=== PATIENT | female | born 1955 | race Caucasian/White ===

== ENCOUNTER 2022-03-04 09:15 | Inpatient (IN) | payer MEDICAID ==
[~2022-03-04] VITALS: Ht 162.6 cm; Wt 101.6 kg
[2022-03-04] VITALS (50 sets, daily range): BP systolic 77–137; BP diastolic 56–94
[2022-03-04] MEDS ORDERED: NOREPINEPHRINE 8MG/250ML PMX 250 ML IV ONE (09:18)
[2022-03-04 09:48] LABS: BG BASE EXCESS 4.6 mmol/L (-2.0-2.0); BG CARBOXYHEMOGLOBIN 0.1 % (0.5-1.5); BG DEOXYHEMOGLOBIN 0.5 % (0.0-5.0); BG FRACTION INSPIRED OXYGEN 100; BG HCO3 ACT 29.1 mmol/L (22.0-26.0); BG METHEMOGLOBIN 0.2 % (0.0-1.5); BG OXYGEN SATURATION 99.5 % (92.0-98.5); BG OXYHEMOGLOBIN 99.2 % (94.0-97.0); BG PCO2 42.9 mmHg (35.0-45.0); BG PO2 427.8 mmHg (75.0-100.0); BG SAMPLE SITE ALINE; BG TOTAL HEMOGLOBIN 13.8 g/dL (12.0-18.0); BG VENT MODE VENT - AC
[2022-03-04 09:58] LABS: BASOPHILS % 0.1 % (0.0-2.0); HEMATOCRIT. 36.1 % (36.0-48.0); HEMOGLOBIN. 12.6 g/dL (12.0-16.0); LYMPHOCYTES % 14.5 % (20.0-50.0); MEAN CORPUSCULAR HEMOGLOBIN 33.7 pg (28.0-32.0); MEAN CORPUSCULAR VOLUME 96.7 fL (81.0-99.0); MONOCYTES % 6.5 % (2.0-8.0); NEUTROPHILS % 78.9 % (40.0-76.0); PLATELET 198 x1000/uL (130-400); RED BLOOD CELL COUNT 3.73 mill/uL (4.2-5.4); RED CELL DISTRIBUTION WIDTH 13.8 % (11.6-14.6)
[2022-03-04] MEDS ORDERED: ETOMIDATE 2MG/ML 10ML VIAL IV ONE (10:00)
[2022-03-04] MEDS ORDERED: VECURONIUM BROMIDE 10 MG/VIAL IV ONE (10:00)
[2022-03-04] MEDS ORDERED: MIDAZOLAM HCL 50 MG in DEXTROSE 5% WATER 40 ML IV ONE (10:00)
[2022-03-04 10:05] LABS: CHLORIDE 96 mEq/L (98-107)
[2022-03-04] MEDS ORDERED: LEVOFLOXACIN 500MG PREMIX 100 ML IV ONE (10:15)
[2022-03-04 10:21] LABS: CREATINE KINASE 58 IU/L (26-192); T4 FREE 1.45 ng/dL (0.76-1.46)
[2022-03-04 10:28] LABS: INR 1.1; PROTHROMBIN TIME 11.5 sec (9.6-11.0)
[2022-03-04] MEDS: MIDAZOLAM HCL 100 MG in SODIUM CHLORIDE 0.9% 80 ML IV PRN ×4 (10:31→19:44)
[2022-03-04] MEDS ORDERED: MAGNESIUM 2 G PREMIX 50 ML IV ONE ×2 (11:15)
[2022-03-04] MEDS ORDERED: FENTANYL 2500MCG/250ML PMX 250 ML IV ONE (11:45)
[2022-03-04] MEDS ORDERED: FENTANYL CITRATE/PF 50MCG/ML 2ML VIAL IV ONE (11:45)
[2022-03-04 11:52] LABS: CLARITY URINE CLOUDY (CLEAR); COLOR URINE DARK YELLOW (YELLOW); KETONES URINE 2+ (NEGATIVE); LEUKOCYTE ESTERASE URINE NEGATIVE (NEGATIVE); NITRITE URINE NEGATIVE (NEGATIVE); OCCULT BLOOD URINE NEGATIVE (NEGATIVE); PH URINE 7.5 (4.5-8.0); PROTEIN URINE 2+ (NEGATIVE); SPECIFIC GRAVITY URINE 1.024 (1.005-1.030)
[2022-03-04] MEDS ORDERED: MIDAZOLAM HCL 100 MG in SODIUM CHLORIDE 0.9% 80 ML IV PRN (13:38)
[2022-03-04] MEDS: PHENYLEPHRINE 100 MG in DEXT 5% WATER 240 ML IV PRN ×3 (14:36→21:27)
[2022-03-04] MEDS: FENTANYL 2500MCG/250ML PMX 250 ML IV PRN ×2 (14:40→15:12)
[2022-03-04] MEDS ORDERED: IOHEXOL-350 100 ML BOTTLE ONE (14:48)
[2022-03-04] MEDS ORDERED: ENOXAPARIN 40MG/0.4ML SYR SUBCUT SCH (16:00)
[2022-03-04] MEDS: IPRATROPIUM/ALBUTEROL 0.5-3(2.5)MG/3ML NEB HHN SCH ×2 (16:43→20:16)
[2022-03-04] MEDS: AZITHROMYCIN 500 MG in DEXT 5% WATER 250 ML IV SCH (16:53)
[2022-03-04] MEDS ORDERED: VANCOMYCIN 1.25GM PMX (XELLIA) 250 ML IV SCH (17:00)
[2022-03-04] MEDS: BLOOD SUGAR DIAGNOSTIC STRIP TEST SCH ×2 (17:19→21:10)
[2022-03-04] MEDS: INSULIN LISPRO 100 UNITS/ML SUBCUT SCH ×2 (17:43→21:52)
[2022-03-04] MEDS: LEVETIRACETAM 500MG PREMIX 100 ML IV SCH (18:31)
[2022-03-04] MEDS: CEFEPIME 2,000 MG in DEXT 5% WATER 100 ML IV SCH (18:31)
[2022-03-04] MEDS ORDERED: NOREPINEPHRINE 8 MG in DEXTROSE 5% WATER 250 ML IV PRN (20:45)
[2022-03-04] MEDS ORDERED: NOREPINEPHRINE 8MG/250ML PMX 250 ML IV PRN (20:45)
[2022-03-04] MEDS: DEXAMETHASONE 10 MG/ML VIAL IV SCH (21:11)
[2022-03-04] MEDS: INSULIN GLARGINE 100 UNITS/ML SUBCUT SCH (21:52)
[2022-03-04] MEDS ORDERED: VASOPRESSIN 20 UNIT in SODIUM CHLORIDE 0.9% 99 ML IV PRN (22:15)
[2022-03-05] VITALS (96 sets, daily range): BP systolic 66–145; BP diastolic 48–98
[2022-03-05] MEDS: IPRATROPIUM/ALBUTEROL 0.5-3(2.5)MG/3ML NEB HHN SCH ×7 (00:38→23:32)
[2022-03-05] MEDS: DEXAMETHASONE 10 MG/ML VIAL IV SCH ×4 (02:08→18:03)
[2022-03-05] MEDS: CEFEPIME 2,000 MG in DEXT 5% WATER 100 ML IV SCH ×3 (02:08→18:04)
[2022-03-05 05:38] LABS: CHLORIDE 99 mEq/L (98-107)
[2022-03-05] MEDS: VANCOMYCIN 500MG PREMIX 100 ML IV SCH ×2 (06:54→18:04)
[2022-03-05] MEDS: BLOOD SUGAR DIAGNOSTIC STRIP TEST SCH ×3 (08:04→18:14)
[2022-03-05] MEDS: INSULIN LISPRO 100 UNITS/ML SUBCUT SCH ×3 (08:11→18:07)
[2022-03-05] MEDS: FAMOTIDINE 20MG/2ML VIAL IV SCH (09:22)
[2022-03-05 09:41] LABS: BG BASE EXCESS 4.4 mmol/L (-2.0-2.0); BG CARBOXYHEMOGLOBIN 0.4 % (0.5-1.5); BG DEOXYHEMOGLOBIN 2.3 % (0.0-5.0); BG FRACTION INSPIRED OXYGEN 40; BG HCO3 ACT 27.4 mmol/L (22.0-26.0); BG METHEMOGLOBIN 0.3 % (0.0-1.5); BG OXYGEN SATURATION 97.7 % (92.0-98.5); BG PCO2 35.9 mmHg (35.0-45.0); BG PH 7.501 (7.350-7.450); BG PO2 94.5 mmHg (75.0-100.0); BG SAMPLE SITE RIGHT RADIAL; BG TOTAL HEMOGLOBIN 14.3 g/dL (12.0-18.0); BG VENT MODE VENT - AC
[2022-03-05] MEDS: LEVETIRACETAM 500MG PREMIX 100 ML IV SCH ×2 (10:02→21:28)
[2022-03-05 11:55] LABS: HEMOGLOBIN. 13.7 g/dL (12.0-16.0); MEAN CORPUSCULAR HEMOGLOBIN 33.4 pg (28.0-32.0); MEAN CORPUSCULAR VOLUME 97.6 fL (81.0-99.0); MEAN PLATELET VOLUME 7.6 fl (7.4-10.4); PLATELET 196 x1000/uL (130-400); RED CELL DISTRIBUTION WIDTH 14.3 % (11.6-14.6)
[2022-03-05 12:18] LABS: PLATELET ESTIMATE NORMAL
[2022-03-05] MEDS: PHENYLEPHRINE 100 MG in DEXT 5% WATER 240 ML IV PRN (16:23)
[2022-03-05] MEDS: AZITHROMYCIN 500 MG in DEXT 5% WATER 250 ML IV SCH (16:24)
[2022-03-05] MEDS ORDERED: DOCUSATE SODIUM SUGAR FREE 100MG/10ML UDC GT PRN (17:15)
[2022-03-05] MEDS: INSULIN GLARGINE 100 UNITS/ML SUBCUT SCH (21:28)
[2022-03-06] VITALS (93 sets, daily range): BP systolic 52–128; BP diastolic 21–84
[2022-03-06] MEDS: DEXAMETHASONE 10 MG/ML VIAL IV SCH ×4 (00:15→18:02)
[2022-03-06] MEDS: INSULIN LISPRO 100 UNITS/ML SUBCUT SCH ×4 (00:16→18:03)
[2022-03-06] MEDS: BLOOD SUGAR DIAGNOSTIC STRIP TEST SCH ×4 (00:16→17:57)
[2022-03-06] MEDS: CEFEPIME 2,000 MG in DEXT 5% WATER 100 ML IV SCH ×3 (02:17→17:14)
[2022-03-06] MEDS: IPRATROPIUM/ALBUTEROL 0.5-3(2.5)MG/3ML NEB HHN SCH ×5 (03:30→20:17)
[2022-03-06 04:27] LABS: HEMATOCRIT. 38.5 % (36.0-48.0); HEMOGLOBIN. 12.8 g/dL (12.0-16.0); MEAN CORPUSCULAR HEMOGLOBIN 32.2 pg (28.0-32.0); MEAN PLATELET VOLUME 8.3 fl (7.4-10.4); PLATELET 188 x1000/uL (130-400); RED BLOOD CELL COUNT 3.97 mill/uL (4.2-5.4); RED CELL DISTRIBUTION WIDTH 14.9 % (11.6-14.6)
[2022-03-06 04:32] LABS: CHLORIDE 100 mEq/L (98-107)
[2022-03-06 04:39] LABS: VANCOMYCIN TROUGH 8.7 ug/mL (5.0-10.0)
[2022-03-06] MEDS: VANCOMYCIN 500MG PREMIX 100 ML IV SCH (07:56)
[2022-03-06] MEDS: LEVETIRACETAM 500MG PREMIX 100 ML IV SCH ×2 (08:00→21:06)
[2022-03-06] MEDS: FAMOTIDINE 20MG/2ML VIAL IV SCH (08:00)
[2022-03-06] MEDS: PHENYLEPHRINE 100 MG in DEXT 5% WATER 240 ML IV PRN (08:02)
[2022-03-06 09:22] LABS: BG CARBOXYHEMOGLOBIN 0.7 % (0.5-1.5); BG DEOXYHEMOGLOBIN 4.9 % (0.0-5.0); BG FRACTION INSPIRED OXYGEN 40; BG HCO3 ACT 22.2 mmol/L (22.0-26.0); BG METHEMOGLOBIN 0.2 % (0.0-1.5); BG OXYGEN SATURATION 95.1 % (92.0-98.5); BG OXYHEMOGLOBIN 94.2 % (94.0-97.0); BG PH 7.407 (7.350-7.450); BG PO2 75.7 mmHg (75.0-100.0); BG SAMPLE SITE RIGHT RADIAL; BG TOTAL HEMOGLOBIN 13.7 g/dL (12.0-18.0); BG VENT MODE VENT - AC
[2022-03-06 11:30] LABS: PLATELET ESTIMATE NORMAL
[2022-03-06] MEDS: POTASSIUM CHLORIDE 20MEQ TABLET SR PO SCH (11:50)
[2022-03-06] MEDS: MIDAZOLAM HCL 100 MG in SODIUM CHLORIDE 0.9% 80 ML IV PRN (15:52)
[2022-03-06] MEDS: AZITHROMYCIN 500 MG in DEXT 5% WATER 250 ML IV SCH (17:14)
[2022-03-06] MEDS: IPRATROPIUM/ALBUTEROL 0.5-3(2.5)MG/3ML NEB HHN PRN (17:57)
[2022-03-06] MEDS: VANCOMYCIN 750MG PREMIX 150 ML IV SCH (18:02)
[2022-03-06] MEDS: INSULIN GLARGINE 100 UNITS/ML SUBCUT SCH (21:21)
[2022-03-07] VITALS (87 sets, daily range): BP systolic 83–135; BP diastolic 52–94
[2022-03-07] MEDS: IPRATROPIUM/ALBUTEROL 0.5-3(2.5)MG/3ML NEB HHN SCH ×3 (00:02→08:19)
[2022-03-07] MEDS: DEXAMETHASONE 10 MG/ML VIAL IV SCH ×4 (00:03→19:22)
[2022-03-07] MEDS: INSULIN LISPRO 100 UNITS/ML SUBCUT SCH ×4 (00:06→19:23)
[2022-03-07] MEDS: BLOOD SUGAR DIAGNOSTIC STRIP TEST SCH ×4 (00:08→18:00)
[2022-03-07] MEDS: CEFEPIME 2,000 MG in DEXT 5% WATER 100 ML IV SCH ×2 (02:00→10:59)
[2022-03-07] MEDS: PHENYLEPHRINE 100 MG in DEXT 5% WATER 240 ML IV PRN (04:53)
[2022-03-07 04:58] LABS: HEMATOCRIT. 37.2 % (36.0-48.0); HEMOGLOBIN. 12.5 g/dL (12.0-16.0); MEAN CORPUSCULAR HEMOGLOBIN 32.9 pg (28.0-32.0); MEAN CORPUSCULAR VOLUME 97.8 fL (81.0-99.0); MEAN PLATELET VOLUME 8.3 fl (7.4-10.4); PLATELET 156 x1000/uL (130-400); RED BLOOD CELL COUNT 3.81 mill/uL (4.2-5.4)
[2022-03-07 05:25] LABS: CHLORIDE 98 mEq/L (98-107)
[2022-03-07] MEDS: VANCOMYCIN 750MG PREMIX 150 ML IV SCH ×2 (05:57→19:19)
[2022-03-07 06:55] LABS: PLATELET ESTIMATE NORMAL
[2022-03-07 08:40] LABS: BG BASE EXCESS -2.6 mmol/L (-2.0-2.0); BG CARBOXYHEMOGLOBIN 0.1 % (0.5-1.5); BG DEOXYHEMOGLOBIN 3.9 % (0.0-5.0); BG FRACTION INSPIRED OXYGEN 60; BG HCO3 ACT 23.8 mmol/L (22.0-26.0); BG METHEMOGLOBIN 0.6 % (0.0-1.5); BG OXYGEN SATURATION 96.1 % (92.0-98.5); BG OXYHEMOGLOBIN 95.4 % (94.0-97.0); BG PCO2 47.1 mmHg (35.0-45.0); BG PH 7.321 (7.350-7.450); BG PO2 89.9 mmHg (75.0-100.0); BG SAMPLE SITE RIGHT RADIAL; BG TOTAL HEMOGLOBIN 13.5 g/dL (12.0-18.0); BG VENT MODE VENT - AC
[2022-03-07] MEDS: POTASSIUM CHLORIDE 20MEQ TABLET SR PO SCH (09:36)
[2022-03-07] MEDS: FAMOTIDINE 20MG/2ML VIAL IV SCH (09:36)
[2022-03-07] MEDS ORDERED: SODIUM CHLORIDE 0.9% 500 ML IV NR (10:21)
[2022-03-07] MEDS: LEVETIRACETAM 500MG PREMIX 100 ML IV SCH ×2 (11:38→21:13)
[2022-03-07] MEDS: IPRATROPIUM BROMIDE (0.02%) 0.5MG/2.5ML NEB HHN SCH ×2 (12:14→20:42)
[2022-03-07] MEDS ORDERED: [UNRECOGNIZED DRUG - REMARK] XX SCH (15:15)
[2022-03-07] MEDS ORDERED: NOREPINEPHRINE 8 MG in SODIUM CHLORIDE 0.9% 242 ML IV PRN (15:30)
[2022-03-07] MEDS: AZITHROMYCIN 500 MG in SODIUM CHLORIDE 0.9% 250 ML IV SCH (17:15)
[2022-03-07] MEDS ORDERED: GADOTERATE MEGLUMINE 5 MMOL/10 ML VIAL IV ONE (18:37)
[2022-03-07] MEDS: CEFEPIME 2,000 MG in SODIUM CHLORIDE 0.9% 100 ML IV SCH (19:19)
[2022-03-07] MEDS: PHENYLEPHRINE 100 MG in SODIUM CHLORIDE 0.9% 240 ML IV PRN (21:16)
[2022-03-07] MEDS: INSULIN GLARGINE 100 UNITS/ML SUBCUT SCH (22:00)
[2022-03-08] VITALS (86 sets, daily range): BP systolic 88–144; BP diastolic 50–95
[2022-03-08] MEDS: DEXAMETHASONE 10 MG/ML VIAL IV SCH ×5 (00:08→23:22)
[2022-03-08] MEDS: BLOOD SUGAR DIAGNOSTIC STRIP TEST SCH ×5 (00:08→23:17)
[2022-03-08] MEDS: INSULIN LISPRO 100 UNITS/ML SUBCUT SCH ×5 (00:10→23:23)
[2022-03-08] MEDS: IPRATROPIUM BROMIDE (0.02%) 0.5MG/2.5ML NEB HHN SCH ×4 (01:37→20:57)
[2022-03-08] MEDS: CEFEPIME 2,000 MG in SODIUM CHLORIDE 0.9% 100 ML IV SCH ×3 (02:01→18:01)
[2022-03-08] MEDS: VANCOMYCIN 750MG PREMIX 150 ML IV SCH ×2 (05:53→18:48)
[2022-03-08 06:32] LABS: CHLORIDE 101 mEq/L (98-107)
[2022-03-08] MEDS: LEVETIRACETAM 500MG PREMIX 100 ML IV SCH ×2 (09:46→20:58)
[2022-03-08] MEDS: FAMOTIDINE 20MG/2ML VIAL IV SCH (09:46)
[2022-03-08] MEDS: PHENYLEPHRINE 100 MG in SODIUM CHLORIDE 0.9% 240 ML IV PRN (10:06)
[2022-03-08 10:12] LABS: BG CARBOXYHEMOGLOBIN 0.3 % (0.5-1.5); BG DEOXYHEMOGLOBIN 4.8 % (0.0-5.0); BG HCO3 ACT 24.8 mmol/L (22.0-26.0); BG METHEMOGLOBIN 0.2 % (0.0-1.5); BG OXYGEN SATURATION 95.2 % (92.0-98.5); BG OXYHEMOGLOBIN 94.7 % (94.0-97.0); BG PCO2 36.9 mmHg (35.0-45.0); BG PH 7.445 (7.350-7.450); BG PO2 71.5 mmHg (75.0-100.0); BG SAMPLE SITE RIGHT RADIAL; BG TOTAL HEMOGLOBIN 13.9 g/dL (12.0-18.0); BG VENT MODE VENT - AC
[2022-03-08 12:47] LABS: CHLORIDE 101 mEq/L (98-107)
[2022-03-08] MEDS: AZITHROMYCIN 500 MG in SODIUM CHLORIDE 0.9% 250 ML IV SCH (18:01)
[2022-03-08] MEDS: INSULIN GLARGINE 100 UNITS/ML SUBCUT SCH (20:59)
[2022-03-09] VITALS (59 sets, daily range): BP systolic 81–132; BP diastolic 52–97
[2022-03-09] MEDS: IPRATROPIUM BROMIDE (0.02%) 0.5MG/2.5ML NEB HHN SCH ×6 (00:33→20:03)
[2022-03-09] MEDS: CEFEPIME 2,000 MG in SODIUM CHLORIDE 0.9% 100 ML IV SCH ×3 (02:15→18:32)
[2022-03-09] MEDS: PHENYLEPHRINE 100 MG in SODIUM CHLORIDE 0.9% 240 ML IV PRN ×2 (04:10→21:00)
[2022-03-09 05:26] LABS: HEMATOCRIT. 37.9 % (36.0-48.0); HEMOGLOBIN. 12.8 g/dL (12.0-16.0); MEAN PLATELET VOLUME 9.6 fl (7.4-10.4); PLATELET 132 x1000/uL (130-400); RED BLOOD CELL COUNT 3.87 mill/uL (4.2-5.4); RED CELL DISTRIBUTION WIDTH 15.3 % (11.6-14.6)
[2022-03-09] MEDS: BLOOD SUGAR DIAGNOSTIC STRIP TEST SCH ×3 (05:45→17:38)
[2022-03-09 06:05] LABS: CHLORIDE 104 mEq/L (98-107)
[2022-03-09] MEDS: VANCOMYCIN 750MG PREMIX 150 ML IV SCH ×2 (06:11→17:38)
[2022-03-09] MEDS: DEXAMETHASONE 10 MG/ML VIAL IV SCH ×4 (06:13→23:58)
[2022-03-09] MEDS: INSULIN LISPRO 100 UNITS/ML SUBCUT SCH ×4 (06:13→23:59)
[2022-03-09 08:45] LABS: BG BASE EXCESS 1.2 mmol/L (-2.0-2.0); BG CARBOXYHEMOGLOBIN 0.5 % (0.5-1.5); BG DEOXYHEMOGLOBIN 3.1 % (0.0-5.0); BG FRACTION INSPIRED OXYGEN 60; BG HCO3 ACT 24.8 mmol/L (22.0-26.0); BG METHEMOGLOBIN 0.3 % (0.0-1.5); BG OXYGEN SATURATION 96.9 % (92.0-98.5); BG OXYHEMOGLOBIN 96.1 % (94.0-97.0); BG PCO2 36.1 mmHg (35.0-45.0); BG PH 7.454 (7.350-7.450); BG PO2 86.7 mmHg (75.0-100.0); BG SAMPLE SITE RIGHT RADIAL; BG TOTAL HEMOGLOBIN 13.8 g/dL (12.0-18.0); BG VENT MODE VENT - PRVC
[2022-03-09] MEDS: FAMOTIDINE 20MG/2ML VIAL IV SCH (09:00)
[2022-03-09] MEDS: LEVETIRACETAM 500MG PREMIX 100 ML IV SCH ×2 (09:00→23:27)
[2022-03-09 10:01] LABS: PLATELET ESTIMATE NORMAL
[2022-03-09] MEDS: PROPOFOL 10MG/ML 100ML 100 ML IV PRN (22:39)
[2022-03-09] MEDS: INSULIN GLARGINE 100 UNITS/ML SUBCUT SCH (23:27)
[2022-03-10] VITALS (102 sets, daily range): BP systolic 47–144; BP diastolic 24–88
[2022-03-10] MEDS: IPRATROPIUM BROMIDE (0.02%) 0.5MG/2.5ML NEB HHN SCH ×7 (00:33→23:59)
[2022-03-10] MEDS: CEFEPIME 2,000 MG in SODIUM CHLORIDE 0.9% 100 ML IV SCH ×3 (02:27→18:02)
[2022-03-10] MEDS: PROPOFOL 10MG/ML 100ML 100 ML IV PRN (04:21)
[2022-03-10] MEDS: INSULIN LISPRO 100 UNITS/ML SUBCUT SCH ×3 (05:57→18:02)
[2022-03-10] MEDS: DEXAMETHASONE 10 MG/ML VIAL IV SCH ×4 (05:58→23:55)
[2022-03-10] MEDS: BLOOD SUGAR DIAGNOSTIC STRIP TEST SCH ×5 (05:58→23:55)
[2022-03-10 06:18] LABS: HEMATOCRIT. 38.9 % (36.0-48.0); HEMOGLOBIN. 12.9 g/dL (12.0-16.0); MEAN CORPUSCULAR HEMOGLOBIN 33.1 pg (28.0-32.0); MEAN CORPUSCULAR VOLUME 99.5 fL (81.0-99.0); PLATELET 114 x1000/uL (130-400); RED BLOOD CELL COUNT 3.91 mill/uL (4.2-5.4); RED CELL DISTRIBUTION WIDTH 15.1 % (11.6-14.6)
[2022-03-10 07:38] LABS: CHLORIDE 98 mEq/L (98-107)
[2022-03-10 07:49] LABS: PLATELET ESTIMATE DECREASED
[2022-03-10 08:20] LABS: BG BASE EXCESS 6.3 mmol/L (-2.0-2.0); BG CARBOXYHEMOGLOBIN 0.4 % (0.5-1.5); BG DEOXYHEMOGLOBIN 2.5 % (0.0-5.0); BG FRACTION INSPIRED OXYGEN 60; BG HCO3 ACT 31.1 mmol/L (22.0-26.0); BG METHEMOGLOBIN 0.2 % (0.0-1.5); BG OXYGEN SATURATION 97.5 % (92.0-98.5); BG OXYHEMOGLOBIN 96.9 % (94.0-97.0); BG PCO2 45.1 mmHg (35.0-45.0); BG PH 7.456 (7.350-7.450); BG PO2 94.3 mmHg (75.0-100.0); BG SAMPLE SITE RIGHT RADIAL; BG TOTAL HEMOGLOBIN 13.6 g/dL (12.0-18.0); BG VENT MODE VENT - PRVC
[2022-03-10] MEDS: LEVETIRACETAM 500MG PREMIX 100 ML IV SCH ×2 (09:35→21:15)
[2022-03-10] MEDS: FAMOTIDINE 20MG/2ML VIAL IV SCH (09:36)
[2022-03-10] MEDS: INSULIN GLARGINE 100 UNITS/ML SUBCUT SCH (21:16)
[2022-03-11] VITALS (99 sets, daily range): BP systolic 47–146; BP diastolic 21–118
[2022-03-11] MEDS: INSULIN LISPRO 100 UNITS/ML SUBCUT SCH ×5 (00:03→23:06)
[2022-03-11] MEDS: CEFEPIME 2,000 MG in SODIUM CHLORIDE 0.9% 100 ML IV SCH ×3 (02:03→17:23)
[2022-03-11] MEDS: IPRATROPIUM BROMIDE (0.02%) 0.5MG/2.5ML NEB HHN SCH ×5 (03:58→20:40)
[2022-03-11 06:00] LABS: HEMATOCRIT. 39.8 % (36.0-48.0); HEMOGLOBIN. 13.4 g/dL (12.0-16.0); MEAN CORPUSCULAR VOLUME 98.1 fL (81.0-99.0); MEAN PLATELET VOLUME 9.3 fl (7.4-10.4); PLATELET 102 x1000/uL (130-400); RED BLOOD CELL COUNT 4.06 mill/uL (4.2-5.4); RED CELL DISTRIBUTION WIDTH 14.7 % (11.6-14.6)
[2022-03-11] MEDS: BLOOD SUGAR DIAGNOSTIC STRIP TEST SCH ×4 (06:14→23:09)
[2022-03-11] MEDS: DEXAMETHASONE 10 MG/ML VIAL IV SCH ×4 (06:25→23:09)
[2022-03-11 07:02] LABS: PLATELET ESTIMATE DECREASED
[2022-03-11 09:20] LABS: BG BASE EXCESS 3.9 mmol/L (-2.0-2.0); BG CARBOXYHEMOGLOBIN 0.9 % (0.5-1.5); BG DEOXYHEMOGLOBIN 3.7 % (0.0-5.0); BG FRACTION INSPIRED OXYGEN 50; BG HCO3 ACT 27.5 mmol/L (22.0-26.0); BG METHEMOGLOBIN 0.2 % (0.0-1.5); BG OXYGEN SATURATION 96.3 % (92.0-98.5); BG OXYHEMOGLOBIN 95.2 % (94.0-97.0); BG PCO2 37.8 mmHg (35.0-45.0); BG PH 7.479 (7.350-7.450); BG SAMPLE SITE RIGHT RADIAL; BG TOTAL HEMOGLOBIN 14.1 g/dL (12.0-18.0); BG VENT MODE VENT - PRVC
[2022-03-11 09:28] LABS: CHLORIDE 97 mEq/L (98-107)
[2022-03-11] MEDS: LEVETIRACETAM 500MG PREMIX 100 ML IV SCH ×2 (09:57→20:55)
[2022-03-11] MEDS: FAMOTIDINE 20MG/2ML VIAL IV SCH (09:57)
[2022-03-11 13:46] LABS: SODIUM URINE RANDOM 53 mEq/L
[2022-03-11] MEDS: INSULIN GLARGINE 100 UNITS/ML SUBCUT SCH (23:04)
[2022-03-12] VITALS (94 sets, daily range): BP systolic 85–134; BP diastolic 52–118
[2022-03-12] MEDS: IPRATROPIUM BROMIDE (0.02%) 0.5MG/2.5ML NEB HHN SCH ×6 (00:28→20:21)
[2022-03-12] MEDS: CEFEPIME 2,000 MG in SODIUM CHLORIDE 0.9% 100 ML IV SCH ×3 (01:22→17:52)
[2022-03-12 05:08] LABS: HEMATOCRIT. 38.6 % (36.0-48.0); HEMOGLOBIN. 12.9 g/dL (12.0-16.0); MEAN CORPUSCULAR HEMOGLOBIN 32.8 pg (28.0-32.0); MEAN CORPUSCULAR VOLUME 98.1 fL (81.0-99.0); PLATELET 103 x1000/uL (130-400); RED BLOOD CELL COUNT 3.94 mill/uL (4.2-5.4); RED CELL DISTRIBUTION WIDTH 14.4 % (11.6-14.6)
[2022-03-12] MEDS: DEXAMETHASONE 10 MG/ML VIAL IV SCH ×3 (05:16→17:52)
[2022-03-12] MEDS: INSULIN LISPRO 100 UNITS/ML SUBCUT SCH ×4 (05:18→17:53)
[2022-03-12] MEDS: BLOOD SUGAR DIAGNOSTIC STRIP TEST SCH ×3 (05:22→17:52)
[2022-03-12 07:08] LABS: PLATELET ESTIMATE SLIGHTLY DECREASED
[2022-03-12 08:03] LABS: BG BASE EXCESS 1.2 mmol/L (-2.0-2.0); BG CARBOXYHEMOGLOBIN 0.9 % (0.5-1.5); BG FRACTION INSPIRED OXYGEN 50; BG HCO3 ACT 25.9 mmol/L (22.0-26.0); BG METHEMOGLOBIN 0.1 % (0.0-1.5); BG OXYGEN SATURATION 92.9 % (92.0-98.5); BG PCO2 41.3 mmHg (35.0-45.0); BG PH 7.415 (7.350-7.450); BG PO2 67.8 mmHg (75.0-100.0); BG SAMPLE SITE RIGHT RADIAL; BG TOTAL HEMOGLOBIN 14.1 g/dL (12.0-18.0); BG VENT MODE VENT PRVC
[2022-03-12] MEDS: LEVETIRACETAM 500MG PREMIX 100 ML IV SCH ×2 (08:30→21:25)
[2022-03-12] MEDS: FAMOTIDINE 20MG/2ML VIAL IV SCH (08:30)
[2022-03-12 08:42] LABS: CHLORIDE 97 mEq/L (98-107)
[2022-03-12] MEDS ORDERED: INSULIN LISPRO 100 UNITS/ML SUBCUT SCH ×3 (09:30→13:20)
[2022-03-12] MEDS ORDERED: DEXTROSE 50% WATER 50ML SYRINGE IV PRN (09:30)
[2022-03-12] MEDS ORDERED: SODIUM CHLORIDE 0.9% 1,000 ML IV STA (13:41)
[2022-03-12] MEDS: MORPHINE SULFATE 2 MG/ML CPJ (NOT FOR IM USE) IV PRN (14:28)
[2022-03-13] VITALS (95 sets, daily range): BP systolic 69–139; BP diastolic 49–88
[2022-03-13] MEDS: IPRATROPIUM BROMIDE (0.02%) 0.5MG/2.5ML NEB HHN SCH ×6 (00:19→20:06)
[2022-03-13] MEDS: DEXAMETHASONE 10 MG/ML VIAL IV SCH ×4 (00:23→18:20)
[2022-03-13] MEDS: INSULIN GLARGINE 100 UNITS/ML SUBCUT SCH ×2 (00:25→21:13)
[2022-03-13] MEDS: BLOOD SUGAR DIAGNOSTIC STRIP TEST SCH ×4 (00:27→18:21)
[2022-03-13] MEDS: INSULIN LISPRO 100 UNITS/ML SUBCUT SCH ×4 (00:27→18:20)
[2022-03-13] MEDS: PHENYLEPHRINE 100 MG in SODIUM CHLORIDE 0.9% 240 ML IV PRN (00:39)
[2022-03-13] MEDS: CEFEPIME 2,000 MG in SODIUM CHLORIDE 0.9% 100 ML IV SCH ×3 (03:10→18:21)
[2022-03-13 06:50] LABS: HEMATOCRIT. 36.8 % (36.0-48.0); HEMOGLOBIN. 12.2 g/dL (12.0-16.0); MEAN CORPUSCULAR HEMOGLOBIN 32.5 pg (28.0-32.0); MEAN CORPUSCULAR VOLUME 98.3 fL (81.0-99.0); PLATELET 106 x1000/uL (130-400); RED BLOOD CELL COUNT 3.75 mill/uL (4.2-5.4); RED CELL DISTRIBUTION WIDTH 14.5 % (11.6-14.6)
[2022-03-13] MEDS: MORPHINE SULFATE 2 MG/ML CPJ (NOT FOR IM USE) IV PRN ×3 (07:11→21:12)
[2022-03-13 07:12] LABS: CHLORIDE 99 mEq/L (98-107)
[2022-03-13] MEDS: FAMOTIDINE 20MG/2ML VIAL IV SCH (09:07)
[2022-03-13] MEDS: LEVETIRACETAM 500MG PREMIX 100 ML IV SCH ×2 (09:07→21:11)
[2022-03-13 09:58] LABS: PLATELET ESTIMATE DECREASED
[2022-03-14] VITALS (90 sets, daily range): BP systolic 68–143; BP diastolic 36–84
[2022-03-14] MEDS: BLOOD SUGAR DIAGNOSTIC STRIP TEST SCH ×4 (00:20→18:12)
[2022-03-14] MEDS: IPRATROPIUM BROMIDE (0.02%) 0.5MG/2.5ML NEB HHN SCH ×6 (00:21→20:13)
[2022-03-14] MEDS: DEXAMETHASONE 10 MG/ML VIAL IV SCH ×4 (00:29→21:35)
[2022-03-14] MEDS: INSULIN LISPRO 100 UNITS/ML SUBCUT SCH ×4 (00:30→18:12)
[2022-03-14] MEDS: MORPHINE SULFATE 2 MG/ML CPJ (NOT FOR IM USE) IV PRN ×3 (04:29→21:56)
[2022-03-14 05:12] LABS: HEMATOCRIT 36.3 % (36.0-48.0); HEMOGLOBIN 12.2 g/dL (12.0-16.0); MEAN CORPUSCULAR HEMOGLOBIN 33.1 pg (28.0-32.0); MEAN CORPUSCULAR VOLUME 98.9 fL (81.0-99.0); PLATELET 113 x1000/uL (130-400); RED BLOOD CELL COUNT 3.67 mill/uL (4.2-5.4); RED CELL DISTRIBUTION WIDTH 14.6 % (11.6-14.6)
[2022-03-14 05:34] LABS: CHLORIDE 100 mEq/L (98-107)
[2022-03-14 08:00] LABS: BG BASE EXCESS 3.9 mmol/L (-2.0-2.0); BG CARBOXYHEMOGLOBIN 0.3 % (0.5-1.5); BG DEOXYHEMOGLOBIN 5.2 % (0.0-5.0); BG FRACTION INSPIRED OXYGEN 60; BG HCO3 ACT 30.1 mmol/L (22.0-26.0); BG METHEMOGLOBIN 0.2 % (0.0-1.5); BG OXYGEN SATURATION 94.8 % (92.0-98.5); BG OXYHEMOGLOBIN 94.3 % (94.0-97.0); BG PCO2 52.2 mmHg (35.0-45.0); BG PH 7.379 (7.350-7.450); BG PO2 75.4 mmHg (75.0-100.0); BG SAMPLE SITE RIGHT RADIAL; BG TOTAL HEMOGLOBIN 13.1 g/dL (12.0-18.0); BG VENT MODE PRVC
[2022-03-14] MEDS: LEVETIRACETAM 500MG PREMIX 100 ML IV SCH ×2 (09:06→21:34)
[2022-03-14] MEDS: INSULIN GLARGINE 100 UNITS/ML SUBCUT SCH (21:36)
[2022-03-15] VITALS (93 sets, daily range): BP systolic 81–120; BP diastolic 26–82
[2022-03-15] MEDS: BLOOD SUGAR DIAGNOSTIC STRIP TEST SCH ×4 (00:14→17:56)
[2022-03-15] MEDS: PHENYLEPHRINE 100 MG in SODIUM CHLORIDE 0.9% 240 ML IV PRN (00:24)
[2022-03-15] MEDS: IPRATROPIUM BROMIDE (0.02%) 0.5MG/2.5ML NEB HHN SCH ×7 (00:28→23:51)
[2022-03-15 05:26] LABS: HEMATOCRIT. 34.3 % (36.0-48.0); HEMOGLOBIN. 11.4 g/dL (12.0-16.0); MEAN CORPUSCULAR HEMOGLOBIN 32.7 pg (28.0-32.0); MEAN CORPUSCULAR VOLUME 98.2 fL (81.0-99.0); MEAN PLATELET VOLUME 9.4 fl (7.4-10.4); PLATELET 104 x1000/uL (130-400); RED BLOOD CELL COUNT 3.49 mill/uL (4.2-5.4); RED CELL DISTRIBUTION WIDTH 14.4 % (11.6-14.6)
[2022-03-15 05:34] LABS: INR 1.1; PROTHROMBIN TIME 12.2 sec (9.6-11.0)
[2022-03-15] MEDS: INSULIN LISPRO 100 UNITS/ML SUBCUT SCH ×4 (05:48→17:57)
[2022-03-15] MEDS: DEXAMETHASONE 10 MG/ML VIAL IV SCH ×3 (05:57→21:33)
[2022-03-15] MEDS: DEXTROSE 50% WATER 50ML SYRINGE IV PRN ×2 (05:57→18:17)
[2022-03-15 06:36] LABS: CHLORIDE 101 mEq/L (98-107)
[2022-03-15 06:50] LABS: PHOSPHORUS 2.7 mg/dL (2.5-4.9)
[2022-03-15 08:26] LABS: BG BASE EXCESS 7.5 mmol/L (-2.0-2.0); BG CARBOXYHEMOGLOBIN 0.3 % (0.5-1.5); BG DEOXYHEMOGLOBIN 1.9 % (0.0-5.0); BG FRACTION INSPIRED OXYGEN 60; BG HCO3 ACT 29.5 mmol/L (22.0-26.0); BG METHEMOGLOBIN 0.3 % (0.0-1.5); BG OXYGEN SATURATION 98.1 % (92.0-98.5); BG OXYHEMOGLOBIN 97.5 % (94.0-97.0); BG PCO2 32.8 mmHg (35.0-45.0); BG PH 7.572 (7.350-7.450); BG SAMPLE SITE RIGHT RADIAL; BG TOTAL HEMOGLOBIN 11.7 g/dL (12.0-18.0); BG VENT MODE PRVC
[2022-03-15 09:39] LABS: PLATELET ESTIMATE SLIGHTLY DECREASED
[2022-03-15] MEDS: LEVETIRACETAM 500MG PREMIX 100 ML IV SCH ×2 (09:50→21:33)
[2022-03-15] MEDS: PANTOPRAZOLE SODIUM 40 MG/VIAL IV SCH (12:58)
[2022-03-15] MEDS ORDERED: ROCURONIUM BROMIDE 10MG/ML VIAL 5ML IV ONE (13:27)
[2022-03-15] MEDS ORDERED: FENTANYL CITRATE/PF 50MCG/ML 2ML VIAL ONE (13:29)
[2022-03-15 14:45] LABS: TOTAL IRON BINDING CAPACITY 152 ug/dL (250-450)
[2022-03-15 15:15] LABS: VITAMIN B12 SERUM 1445 pg/mL (211-911)
[2022-03-15] MEDS: MIDODRINE HCL 5MG TABLET PO SCH ×2 (15:20→21:33)
[2022-03-15 16:55] LABS: FERRITIN 1950 ng/mL (10-291)
[2022-03-15] MEDS: SENNOSIDES/DOCUSATE SOD 8.6/50MG TABLET PO PRN (21:33)
[2022-03-15] MEDS: INSULIN GLARGINE 100 UNITS/ML SUBCUT SCH (21:34)
[2022-03-15] MEDS: MORPHINE SULFATE 2 MG/ML CPJ (NOT FOR IM USE) IV PRN (21:35)
[2022-03-16] VITALS (95 sets, daily range): BP systolic 74–132; BP diastolic 34–88
[2022-03-16] MEDS: BLOOD SUGAR DIAGNOSTIC STRIP TEST SCH ×4 (00:27→17:41)
[2022-03-16] MEDS: INSULIN LISPRO 100 UNITS/ML SUBCUT SCH ×4 (00:31→17:47)
[2022-03-16] MEDS: MORPHINE SULFATE 2 MG/ML CPJ (NOT FOR IM USE) IV PRN (03:16)
[2022-03-16] MEDS: IPRATROPIUM BROMIDE (0.02%) 0.5MG/2.5ML NEB HHN SCH ×5 (04:16→21:08)
[2022-03-16] MEDS: MIDODRINE HCL 5MG TABLET PO SCH ×3 (05:17→21:30)
[2022-03-16] MEDS: DEXAMETHASONE 10 MG/ML VIAL IV SCH ×3 (05:17→21:30)
[2022-03-16 05:21] LABS: HEMATOCRIT. 32.8 % (36.0-48.0); MEAN CORPUSCULAR VOLUME 98.3 fL (81.0-99.0); MEAN PLATELET VOLUME 9.6 fl (7.4-10.4); PLATELET 105 x1000/uL (130-400); RED BLOOD CELL COUNT 3.34 mill/uL (4.2-5.4); RED CELL DISTRIBUTION WIDTH 14.4 % (11.6-14.6)
[2022-03-16 05:35] LABS: CHLORIDE 103 mEq/L (98-107)
[2022-03-16] MEDS: LEVETIRACETAM 500MG PREMIX 100 ML IV SCH ×2 (09:04→21:30)
[2022-03-16] MEDS: PANTOPRAZOLE SODIUM 40 MG/VIAL IV SCH (09:04)
[2022-03-16 12:13] LABS: BG BASE EXCESS 0.2 mmol/L (-2.0-2.0); BG CARBOXYHEMOGLOBIN 0.2 % (0.5-1.5); BG FRACTION INSPIRED OXYGEN 45; BG HCO3 ACT 22.7 mmol/L (22.0-26.0); BG METHEMOGLOBIN 0.3 % (0.0-1.5); BG OXYHEMOGLOBIN 95.5 % (94.0-97.0); BG PCO2 30.6 mmHg (35.0-45.0); BG PH 7.489 (7.350-7.450); BG PO2 77.8 mmHg (75.0-100.0); BG SAMPLE SITE RIGHT RADIAL; BG VENT MODE VENT - AC
[2022-03-16 12:46] LABS: PLATELET ESTIMATE SLIGHTLY DECREASED
[2022-03-16] MEDS ORDERED: ACETAMINOPHEN 650MG/20.3ML UDC PO PRN (13:00)
[2022-03-16] MEDS ORDERED: PIPERACILLIN/TAZOBACTAM 3.375 G in DEXTROSE 5% WATER 50 ML IV SCH (14:00)
[2022-03-16] MEDS: IPRATROPIUM/ALBUTEROL 0.5-3(2.5)MG/3ML NEB HHN PRN (14:07)
[2022-03-16] MEDS: INSULIN GLARGINE 100 UNITS/ML SUBCUT SCH (21:31)
[2022-03-17] VITALS (84 sets, daily range): BP systolic 76–135; BP diastolic 40–90
[2022-03-17] MEDS: BLOOD SUGAR DIAGNOSTIC STRIP TEST SCH ×5 (00:04→23:26)
[2022-03-17] MEDS: INSULIN LISPRO 100 UNITS/ML SUBCUT SCH ×5 (00:17→23:30)
[2022-03-17] MEDS: DIPHENHYDRAMINE 50MG/ML VIAL IV PRN (00:48)
[2022-03-17] MEDS: IPRATROPIUM BROMIDE (0.02%) 0.5MG/2.5ML NEB HHN SCH ×6 (01:58→20:35)
[2022-03-17] MEDS: MIDODRINE HCL 5MG TABLET PO SCH ×3 (05:21→21:45)
[2022-03-17] MEDS: DEXAMETHASONE 10 MG/ML VIAL IV SCH ×2 (05:21→13:58)
[2022-03-17 06:53] LABS: HEMOGLOBIN. 10.7 g/dL (12.0-16.0); MEAN CORPUSCULAR VOLUME 99.1 fL (81.0-99.0); MEAN PLATELET VOLUME 9.9 fl (7.4-10.4); PLATELET 102 x1000/uL (130-400); RED BLOOD CELL COUNT 3.23 mill/uL (4.2-5.4); RED CELL DISTRIBUTION WIDTH 14.5 % (11.6-14.6)
[2022-03-17 07:06] LABS: CHLORIDE 101 mEq/L (98-107)
[2022-03-17 08:05] LABS: PLATELET ESTIMATE DECREASED
[2022-03-17 08:10] LABS: BG BASE EXCESS 6.3 mmol/L (-2.0-2.0); BG CARBOXYHEMOGLOBIN 0.1 % (0.5-1.5); BG FRACTION INSPIRED OXYGEN 40; BG HCO3 ACT 30.1 mmol/L (22.0-26.0); BG METHEMOGLOBIN 0.2 % (0.0-1.5); BG OXYHEMOGLOBIN 95.7 % (94.0-97.0); BG PCO2 40.2 mmHg (35.0-45.0); BG PH 7.492 (7.350-7.450); BG PO2 81.1 mmHg (75.0-100.0); BG SAMPLE SITE RIGHT RADIAL; BG TOTAL HEMOGLOBIN 11.9 g/dL (12.0-18.0); BG VENT MODE VENT-PRVC
[2022-03-17] MEDS: PANTOPRAZOLE SODIUM 40 MG/VIAL IV SCH (08:31)
[2022-03-17] MEDS: LEVETIRACETAM 500MG PREMIX 100 ML IV SCH ×2 (08:31→21:46)
[2022-03-17] MEDS: INSULIN GLARGINE 100 UNITS/ML SUBCUT SCH (21:53)
[2022-03-17] MEDS: DEXAMETHASONE 4MG/ML 1ML VIAL IV SCH (22:17)
[2022-03-18] VITALS (63 sets, daily range): BP systolic 103–136; BP diastolic 50–104
[2022-03-18] MEDS: IPRATROPIUM BROMIDE (0.02%) 0.5MG/2.5ML NEB HHN SCH ×6 (00:31→20:58)
[2022-03-18] MEDS: DEXAMETHASONE 4MG/ML 1ML VIAL IV SCH ×3 (05:32→21:37)
[2022-03-18] MEDS: INSULIN LISPRO 100 UNITS/ML SUBCUT SCH ×4 (06:00→23:31)
[2022-03-18] MEDS: MIDODRINE HCL 5MG TABLET PO SCH ×3 (06:02→21:38)
[2022-03-18] MEDS: BLOOD SUGAR DIAGNOSTIC STRIP TEST SCH ×4 (06:02→23:31)
[2022-03-18 06:07] LABS: CHLORIDE 103 mEq/L (98-107)
[2022-03-18 06:09] LABS: HEMATOCRIT. 31.7 % (36.0-48.0); HEMOGLOBIN. 10.5 g/dL (12.0-16.0); MEAN CORPUSCULAR HEMOGLOBIN 33.1 pg (28.0-32.0); MEAN CORPUSCULAR VOLUME 99.6 fL (81.0-99.0); MEAN PLATELET VOLUME 10.2 fl (7.4-10.4); PLATELET 95 x1000/uL (130-400); RED BLOOD CELL COUNT 3.18 mill/uL (4.2-5.4); RED CELL DISTRIBUTION WIDTH 14.8 % (11.6-14.6)
[2022-03-18] MEDS: LEVETIRACETAM 500MG PREMIX 100 ML IV SCH ×2 (08:11→21:37)
[2022-03-18] MEDS: PANTOPRAZOLE SODIUM 40 MG/VIAL IV SCH (08:12)
[2022-03-18 08:13] LABS: PLATELET ESTIMATE DECREASED
[2022-03-18] MEDS ORDERED: FUROSEMIDE 40MG/4ML VIAL IVP NR (16:30)
[2022-03-18] MEDS: INSULIN GLARGINE 100 UNITS/ML SUBCUT SCH (21:39)
[2022-03-19] VITALS (71 sets, daily range): BP systolic 86–141; BP diastolic 58–99
[2022-03-19] MEDS: IPRATROPIUM BROMIDE (0.02%) 0.5MG/2.5ML NEB HHN SCH ×7 (00:25→23:44)
[2022-03-19] MEDS: BLOOD SUGAR DIAGNOSTIC STRIP TEST SCH ×3 (05:26→18:14)
[2022-03-19] MEDS: DEXAMETHASONE 4MG/ML 1ML VIAL IV SCH ×3 (05:31→21:11)
[2022-03-19] MEDS: MIDODRINE HCL 5MG TABLET PO SCH ×3 (05:31→21:11)
[2022-03-19] MEDS: INSULIN LISPRO 100 UNITS/ML SUBCUT SCH ×3 (05:32→18:00)
[2022-03-19 06:25] LABS: HEMOGLOBIN. 10.1 g/dL (12.0-16.0); MEAN CORPUSCULAR HEMOGLOBIN 33.5 pg (28.0-32.0); MEAN CORPUSCULAR VOLUME 99.9 fL (81.0-99.0); PLATELET 86 x1000/uL (130-400); RED CELL DISTRIBUTION WIDTH 14.3 % (11.6-14.6)
[2022-03-19 06:33] LABS: CHLORIDE 104 mEq/L (98-107)
[2022-03-19 08:15] LABS: PLATELET ESTIMATE DECREASED
[2022-03-19] MEDS: LEVETIRACETAM 500MG PREMIX 100 ML IV SCH ×2 (09:09→21:12)
[2022-03-19] MEDS: PANTOPRAZOLE SODIUM 40 MG/VIAL IV SCH (09:10)
[2022-03-19] MEDS: INSULIN GLARGINE 100 UNITS/ML SUBCUT SCH (21:34)
[2022-03-20] VITALS (50 sets, daily range): BP systolic 79–148; BP diastolic 59–90
[2022-03-20] MEDS: BLOOD SUGAR DIAGNOSTIC STRIP TEST SCH ×4 (00:47→18:00)
[2022-03-20] MEDS: INSULIN LISPRO 100 UNITS/ML SUBCUT SCH ×4 (00:52→18:32)
[2022-03-20] MEDS: DIPHENHYDRAMINE 50MG/ML VIAL IV PRN (02:38)
[2022-03-20] MEDS: IPRATROPIUM BROMIDE (0.02%) 0.5MG/2.5ML NEB HHN SCH ×5 (03:35→20:14)
[2022-03-20 05:16] LABS: CHLORIDE 103 mEq/L (98-107)
[2022-03-20 05:18] LABS: HEMOGLOBIN. 11.8 g/dL (12.0-16.0); MEAN CORPUSCULAR HEMOGLOBIN 33.2 pg (28.0-32.0); MEAN CORPUSCULAR VOLUME 101.3 fL (81.0-99.0); MEAN PLATELET VOLUME 10.6 fl (7.4-10.4); PLATELET 97 x1000/uL (130-400); RED BLOOD CELL COUNT 3.56 mill/uL (4.2-5.4); RED CELL DISTRIBUTION WIDTH 15.1 % (11.6-14.6)
[2022-03-20] MEDS: MIDODRINE HCL 5MG TABLET PO SCH ×3 (06:22→21:15)
[2022-03-20] MEDS: DEXAMETHASONE 4MG/ML 1ML VIAL IV SCH ×3 (06:24→22:09)
[2022-03-20 10:21] LABS: PLATELET ESTIMATE SLIGHTLY DECREASED
[2022-03-20] MEDS: PANTOPRAZOLE SODIUM 40 MG/VIAL IV SCH (11:08)
[2022-03-20] MEDS: LEVETIRACETAM 500MG PREMIX 100 ML IV SCH ×2 (11:08→21:15)
[2022-03-20] MEDS: IPRATROPIUM/ALBUTEROL 0.5-3(2.5)MG/3ML NEB HHN PRN (18:24)
[2022-03-20] MEDS: INSULIN GLARGINE 100 UNITS/ML SUBCUT SCH (21:19)
[2022-03-21] VITALS (63 sets, daily range): BP systolic 96–141; BP diastolic 64–102
[2022-03-21] MEDS: IPRATROPIUM BROMIDE (0.02%) 0.5MG/2.5ML NEB HHN SCH ×6 (00:10→20:33)
[2022-03-21] MEDS: BLOOD SUGAR DIAGNOSTIC STRIP TEST SCH ×4 (00:25→18:58)
[2022-03-21] MEDS: INSULIN LISPRO 100 UNITS/ML SUBCUT SCH ×4 (00:30→18:00)
[2022-03-21 05:21] LABS: HEMATOCRIT. 32.1 % (36.0-48.0); HEMOGLOBIN. 10.7 g/dL (12.0-16.0); MEAN CORPUSCULAR HEMOGLOBIN 33.6 pg (28.0-32.0); MEAN CORPUSCULAR VOLUME 100.6 fL (81.0-99.0); MEAN PLATELET VOLUME 10.3 fl (7.4-10.4); PLATELET 94 x1000/uL (130-400); RED BLOOD CELL COUNT 3.19 mill/uL (4.2-5.4); RED CELL DISTRIBUTION WIDTH 15.2 % (11.6-14.6)
[2022-03-21 05:59] LABS: CHLORIDE 102 mEq/L (98-107)
[2022-03-21] MEDS: MIDODRINE HCL 5MG TABLET PO SCH ×3 (06:03→21:14)
[2022-03-21] MEDS: DEXAMETHASONE 4MG/ML 1ML VIAL IV SCH ×3 (06:05→21:14)
[2022-03-21] MEDS: PANTOPRAZOLE SODIUM 40 MG/VIAL IV SCH (08:10)
[2022-03-21] MEDS: LEVETIRACETAM 500MG PREMIX 100 ML IV SCH ×2 (08:10→21:15)
[2022-03-21 09:23] LABS: PLATELET ESTIMATE DECREASED
[2022-03-21] MEDS: INSULIN GLARGINE 100 UNITS/ML SUBCUT SCH (21:17)
[2022-03-22] VITALS (22 sets, daily range): BP systolic 89–160; BP diastolic 66–96
[2022-03-22] MEDS: BLOOD SUGAR DIAGNOSTIC STRIP TEST SCH ×4 (00:37→17:47)
[2022-03-22] MEDS: INSULIN LISPRO 100 UNITS/ML SUBCUT SCH ×4 (00:41→17:47)
[2022-03-22] MEDS: IPRATROPIUM BROMIDE (0.02%) 0.5MG/2.5ML NEB HHN SCH ×5 (00:41→20:56)
[2022-03-22 05:38] LABS: HEMATOCRIT. 32.3 % (36.0-48.0); MEAN CORPUSCULAR HEMOGLOBIN 34.7 pg (28.0-32.0); MEAN CORPUSCULAR VOLUME 101.9 fL (81.0-99.0); MEAN PLATELET VOLUME 10.8 fl (7.4-10.4); PLATELET 82 x1000/uL (130-400); RED BLOOD CELL COUNT 3.17 mill/uL (4.2-5.4); RED CELL DISTRIBUTION WIDTH 15.2 % (11.6-14.6)
[2022-03-22] MEDS: MIDODRINE HCL 5MG TABLET PO SCH ×3 (05:51→21:57)
[2022-03-22] MEDS: DEXAMETHASONE 4MG/ML 1ML VIAL IV SCH ×2 (05:56→21:55)
[2022-03-22 06:05] LABS: CHLORIDE 100 mEq/L (98-107)
[2022-03-22] MEDS: PANTOPRAZOLE SODIUM 40 MG/VIAL IV SCH (08:38)
[2022-03-22] MEDS: LEVETIRACETAM 500MG PREMIX 100 ML IV SCH ×2 (08:38→21:55)
[2022-03-22 08:47] LABS: PLATELET ESTIMATE DECREASED
[2022-03-22] MEDS: BACITRACIN 15GM TUBE TOP SCH ×2 (11:00→17:15)
[2022-03-22] MEDS: DEXTROSE 50% WATER 50ML SYRINGE IV PRN (12:35)
[2022-03-22] MEDS: INSULIN GLARGINE 100 UNITS/ML SUBCUT SCH (22:00)
[2022-03-22] MEDS: DEXT 5%/0.9% NACL 1,000 ML IV SCH (23:28)
[2022-03-23] VITALS (13 sets, daily range): BP systolic 106–136; BP diastolic 62–86
[2022-03-23] MEDS: BLOOD SUGAR DIAGNOSTIC STRIP TEST SCH ×5 (00:25→23:28)
[2022-03-23] MEDS: IPRATROPIUM BROMIDE (0.02%) 0.5MG/2.5ML NEB HHN SCH ×6 (00:44→21:37)
[2022-03-23] MEDS: INSULIN LISPRO 100 UNITS/ML SUBCUT SCH ×5 (05:23→23:27)
[2022-03-23] MEDS: MIDODRINE HCL 5MG TABLET PO SCH ×3 (05:26→21:06)
[2022-03-23 05:28] LABS: INR 1.2; PROTHROMBIN TIME 12.9 sec (9.6-11.0)
[2022-03-23 05:47] LABS: CHLORIDE 99 mEq/L (98-107)
[2022-03-23 06:27] LABS: HEMATOCRIT. 32.3 % (36.0-48.0); HEMOGLOBIN. 10.8 g/dL (12.0-16.0); MEAN CORPUSCULAR HEMOGLOBIN 33.6 pg (28.0-32.0); MEAN CORPUSCULAR VOLUME 100.6 fL (81.0-99.0); MEAN PLATELET VOLUME 10.9 fl (7.4-10.4); PLATELET 75 x1000/uL (130-400); RED BLOOD CELL COUNT 3.21 mill/uL (4.2-5.4)
[2022-03-23 09:34] LABS: PLATELET ESTIMATE SLIGHTLY DECREASED
[2022-03-23] MEDS ORDERED: CEFAZOLIN 1000MG PREMIX 50 ML IV NR (10:30)
[2022-03-23] MEDS ORDERED: MIDAZOLAM HCL 5 MG/5 ML VIAL ONE (10:34)
[2022-03-23] MEDS ORDERED: FENTANYL CITRATE/PF 50MCG/ML 2ML VIAL ONE (10:34)
[2022-03-23] MEDS ORDERED: MIDAZOLAM HCL 2 MG/2 ML VIAL IV PRN (10:55)
[2022-03-23] MEDS: LEVETIRACETAM 500MG PREMIX 100 ML IV SCH ×2 (11:20→21:09)
[2022-03-23] MEDS: PANTOPRAZOLE SODIUM 40 MG/VIAL IV SCH (11:21)
[2022-03-23] MEDS: DEXAMETHASONE 4MG/ML 1ML VIAL IV SCH ×2 (11:21→21:05)
[2022-03-23] MEDS: BACITRACIN 15GM TUBE TOP SCH ×2 (12:11→19:10)
[2022-03-23] MEDS: DEXT 5%/0.9% NACL 1,000 ML IV SCH (15:00)
[2022-03-23] MEDS: INSULIN GLARGINE 100 UNITS/ML SUBCUT SCH (21:07)
[2022-03-24] VITALS (12 sets, daily range): BP systolic 112–136; BP diastolic 54–102
[2022-03-24] MEDS: IPRATROPIUM BROMIDE (0.02%) 0.5MG/2.5ML NEB HHN SCH ×6 (01:01→20:01)
[2022-03-24] MEDS: ACETAMINOPHEN 325MG TABLET PO PRN (01:22)
[2022-03-24] MEDS: DIPHENHYDRAMINE 50MG/ML VIAL IV PRN (01:22)
[2022-03-24] MEDS: MIDODRINE HCL 5MG TABLET PO SCH ×3 (05:36→21:10)
[2022-03-24] MEDS: DEXTROSE 50% WATER 50ML SYRINGE IV PRN (05:42)
[2022-03-24] MEDS: INSULIN LISPRO 100 UNITS/ML SUBCUT SCH ×3 (06:00→18:00)
[2022-03-24] MEDS: BLOOD SUGAR DIAGNOSTIC STRIP TEST SCH ×3 (06:00→18:01)
[2022-03-24 07:14] LABS: HEMATOCRIT. 29.7 % (36.0-48.0); MEAN CORPUSCULAR HEMOGLOBIN 34.1 pg (28.0-32.0); MEAN CORPUSCULAR VOLUME 101.2 fL (81.0-99.0); MEAN PLATELET VOLUME 10.7 fl (7.4-10.4); PLATELET 67 x1000/uL (130-400); RED BLOOD CELL COUNT 2.94 mill/uL (4.2-5.4); RED CELL DISTRIBUTION WIDTH 14.6 % (11.6-14.6)
[2022-03-24] MEDS: DEXT 5%/0.9% NACL 1,000 ML IV SCH ×2 (08:25→18:56)
[2022-03-24 08:30] LABS: BG BASE EXCESS 5.5 mmol/L (-2.0-2.0); BG CARBOXYHEMOGLOBIN 0.3 % (0.5-1.5); BG DEOXYHEMOGLOBIN 5.2 % (0.0-5.0); BG FRACTION INSPIRED OXYGEN 40; BG HCO3 ACT 31.1 mmol/L (22.0-26.0); BG METHEMOGLOBIN 1.1 % (0.0-1.5); BG OXYGEN SATURATION 94.7 % (92.0-98.5); BG OXYHEMOGLOBIN 93.4 % (94.0-97.0); BG PH 7.412 (7.350-7.450); BG PO2 75.9 mmHg (75.0-100.0); BG SAMPLE SITE RIGHT RADIAL; BG TOTAL HEMOGLOBIN 11.8 g/dL (12.0-18.0); BG VENT MODE VENT - AC
[2022-03-24 08:42] LABS: PLATELET ESTIMATE DECREASED
[2022-03-24 08:57] LABS: CHLORIDE 103 mEq/L (98-107)
[2022-03-24] MEDS: BACITRACIN 15GM TUBE TOP SCH ×2 (09:00→18:57)
[2022-03-24] MEDS: PANTOPRAZOLE SODIUM 40 MG/VIAL IV SCH ×2 (09:00→10:28)
[2022-03-24] MEDS: DEXAMETHASONE 4MG/ML 1ML VIAL IV SCH ×2 (10:28→22:27)
[2022-03-24] MEDS: LEVETIRACETAM 500MG PREMIX 100 ML IV SCH ×2 (10:28→21:10)
[2022-03-24 13:58] LABS: BG BASE EXCESS 6.5 mmol/L (-2.0-2.0); BG DEOXYHEMOGLOBIN 4.3 % (0.0-5.0); BG FRACTION INSPIRED OXYGEN 40; BG HCO3 ACT 31.7 mmol/L (22.0-26.0); BG METHEMOGLOBIN 0.3 % (0.0-1.5); BG OXYGEN SATURATION 95.7 % (92.0-98.5); BG OXYHEMOGLOBIN 95.4 % (94.0-97.0); BG PCO2 48.8 mmHg (35.0-45.0); BG PH 7.431 (7.350-7.450); BG PO2 77.5 mmHg (75.0-100.0); BG SAMPLE SITE RIGHT RADIAL; BG TOTAL HEMOGLOBIN 10.4 g/dL (12.0-18.0); BG VENT MODE VENT PRVC
[2022-03-24] MEDS: INSULIN GLARGINE 100 UNITS/ML SUBCUT SCH (21:10)
[2022-03-25] VITALS (18 sets, daily range): BP systolic 65–137; BP diastolic 14–78
[2022-03-25] MEDS: INSULIN LISPRO 100 UNITS/ML SUBCUT SCH ×4 (00:09→18:00)
[2022-03-25] MEDS: IPRATROPIUM BROMIDE (0.02%) 0.5MG/2.5ML NEB HHN SCH ×7 (00:13→23:43)
[2022-03-25] MEDS: DIPHENHYDRAMINE 50MG/ML VIAL IV PRN (00:14)
[2022-03-25] MEDS: MIDODRINE HCL 5MG TABLET PO SCH ×3 (05:06→22:00)
[2022-03-25] MEDS: BLOOD SUGAR DIAGNOSTIC STRIP TEST SCH ×4 (06:00→17:35)
[2022-03-25 06:12] LABS: HEMATOCRIT. 27.8 % (36.0-48.0); HEMOGLOBIN. 9.3 g/dL (12.0-16.0); MEAN CORPUSCULAR HEMOGLOBIN 34.1 pg (28.0-32.0); MEAN PLATELET VOLUME 10.5 fl (7.4-10.4); PLATELET 57 x1000/uL (130-400); RED BLOOD CELL COUNT 2.73 mill/uL (4.2-5.4); RED CELL DISTRIBUTION WIDTH 14.8 % (11.6-14.6)
[2022-03-25 06:35] LABS: CHLORIDE 105 mEq/L (98-107)
[2022-03-25] MEDS: BACITRACIN 15GM TUBE TOP SCH ×2 (08:15→18:02)
[2022-03-25] MEDS: LEVETIRACETAM 500MG PREMIX 100 ML IV SCH ×2 (08:15→20:47)
[2022-03-25 08:59] LABS: PLATELET ESTIMATE MARKEDLY DECREASED
[2022-03-25] MEDS: DEXAMETHASONE 4MG/ML 1ML VIAL IV SCH ×2 (10:44→22:00)
[2022-03-25] MEDS: DEXT 5%/0.9% NACL 1,000 ML IV SCH (18:03)
[2022-03-25] MEDS ORDERED: LORAZEPAM 2MG/ML CPJ IV NR (20:23)
[2022-03-25] MEDS ORDERED: LIDOCAINE HCL 1% 20ML VIAL (Pyxis) INJ INFIL NR (20:30)
[2022-03-25] MEDS ORDERED: POVIDONE-IODINE 10% TOPICAL SOLN 240ML TOP NR (20:30)
[2022-03-25] MEDS: LORAZEPAM 2MG/ML CPJ IV NR ×2 (21:45→22:00)
[2022-03-25] MEDS: INSULIN GLARGINE 100 UNITS/ML SUBCUT SCH (22:00)
[2022-03-25] MEDS: PHENYLEPHRINE 100 MG in DEXT 5% WATER 240 ML IV PRN (22:48)
[2022-03-25] MEDS: PROPOFOL 10MG/ML 100ML 100 ML IV PRN (22:49)
[2022-03-26] VITALS (108 sets, daily range): BP systolic 36–142; BP diastolic 18–93
[2022-03-26 00:09] LABS: BG BASE EXCESS 0.5 mmol/L (-2.0-2.0); BG CARBOXYHEMOGLOBIN 0.3 % (0.5-1.5); BG DEOXYHEMOGLOBIN 0.8 % (0.0-5.0); BG FRACTION INSPIRED OXYGEN 100; BG HCO3 ACT 27.7 mmol/L (22.0-26.0); BG METHEMOGLOBIN 0.3 % (0.0-1.5); BG OXYGEN SATURATION 99.2 % (92.0-98.5); BG OXYHEMOGLOBIN 98.6 % (94.0-97.0); BG PCO2 54.8 mmHg (35.0-45.0); BG PH 7.321 (7.350-7.450); BG SAMPLE SITE RIGHT RADIAL; BG TOTAL HEMOGLOBIN 14.2 g/dL (12.0-18.0); BG TOTAL RESPIRATORY RATE 15 b/min; BG VENT MODE prvc
[2022-03-26] MEDS ORDERED: SODIUM CHLORIDE 0.9% 1000ML BAG (SEPSIS BOLUS) IV ONE (03:15)
[2022-03-26] MEDS ORDERED: NOREPINEPHRINE 8 MG in DEXT 5% WATER 242 ML IV PRN (03:30)
[2022-03-26 05:18] LABS: HEMATOCRIT. 29.6 % (36.0-48.0); MEAN CORPUSCULAR HEMOGLOBIN 34.3 pg (28.0-32.0); MEAN CORPUSCULAR VOLUME 101.7 fL (81.0-99.0); MEAN PLATELET VOLUME 11.1 fl (7.4-10.4); PLATELET 66 x1000/uL (130-400); RED BLOOD CELL COUNT 2.91 mill/uL (4.2-5.4); RED CELL DISTRIBUTION WIDTH 14.9 % (11.6-14.6)
[2022-03-26 05:32] LABS: CHLORIDE 107 mEq/L (98-107)
[2022-03-26] MEDS: BLOOD SUGAR DIAGNOSTIC STRIP TEST SCH ×5 (05:57→23:27)
[2022-03-26] MEDS: MIDODRINE HCL 5MG TABLET PO SCH ×3 (06:17→21:27)
[2022-03-26] MEDS: DEXT 5%/0.9% NACL 1,000 ML IV SCH ×2 (06:33→21:37)
[2022-03-26] MEDS: PHENYLEPHRINE 100 MG in DEXT 5% WATER 240 ML IV PRN ×3 (06:33→21:31)
[2022-03-26] MEDS: INSULIN LISPRO 100 UNITS/ML SUBCUT SCH ×5 (06:37→23:38)
[2022-03-26 07:25] LABS: NUCLEATED RED BLOOD CELLS 1 /100 WBC; PLATELET ESTIMATE DECREASED
[2022-03-26] MEDS: IPRATROPIUM BROMIDE (0.02%) 0.5MG/2.5ML NEB HHN SCH ×4 (08:48→20:18)
[2022-03-26] MEDS: BACITRACIN 15GM TUBE TOP SCH ×2 (09:00→17:00)
[2022-03-26] MEDS: PANTOPRAZOLE SODIUM 40 MG/VIAL IV SCH (09:05)
[2022-03-26] MEDS: DEXAMETHASONE 4MG/ML 1ML VIAL IV SCH (09:05)
[2022-03-26 09:29] LABS: BG BASE EXCESS 0.4 mmol/L (-2.0-2.0); BG CARBOXYHEMOGLOBIN 0.3 % (0.5-1.5); BG DEOXYHEMOGLOBIN 3.9 % (0.0-5.0); BG FRACTION INSPIRED OXYGEN 55; BG HCO3 ACT 24.2 mmol/L (22.0-26.0); BG METHEMOGLOBIN 0.1 % (0.0-1.5); BG OXYGEN SATURATION 96.1 % (92.0-98.5); BG OXYHEMOGLOBIN 95.7 % (94.0-97.0); BG PCO2 35.8 mmHg (35.0-45.0); BG PH 7.447 (7.350-7.450); BG PO2 78.9 mmHg (75.0-100.0); BG SAMPLE SITE RIGHT RADIAL; BG TOTAL HEMOGLOBIN 11.2 g/dL (12.0-18.0); BG VENT MODE PRVC
[2022-03-26] MEDS: LEVETIRACETAM 500MG PREMIX 100 ML IV SCH ×2 (10:45→21:24)
[2022-03-26] MEDS: PROPOFOL 10MG/ML 100ML 100 ML IV PRN ×2 (12:07→23:33)
[2022-03-26] MEDS: CEFEPIME 1,000 MG in DEXTROSE 5% WATER 50 ML IV SCH ×2 (13:31→22:59)
[2022-03-26] MEDS ORDERED: VANCOMYCIN 1500MG in DEXTROSE 5% WATER 250ML IV SCH (15:00)
[2022-03-26] MEDS: SENNOSIDES/DOCUSATE SOD 8.6/50MG TABLET PO PRN (21:27)
[2022-03-26] MEDS: ACETAMINOPHEN 325MG TABLET PO PRN (21:28)
[2022-03-26] MEDS: INSULIN GLARGINE 100 UNITS/ML SUBCUT SCH (21:30)
[2022-03-27] VITALS (107 sets, daily range): BP systolic 34–144; BP diastolic 19–96
[2022-03-27] MEDS: IPRATROPIUM BROMIDE (0.02%) 0.5MG/2.5ML NEB HHN SCH ×6 (00:30→20:40)
[2022-03-27 05:09] LABS: CHLORIDE 106 mEq/L (98-107)
[2022-03-27] MEDS: BLOOD SUGAR DIAGNOSTIC STRIP TEST SCH ×4 (05:47→23:59)
[2022-03-27] MEDS: VANCOMYCIN 750MG PMX (XELLIA) 150 ML IV SCH ×2 (05:47→17:07)
[2022-03-27] MEDS: MIDODRINE HCL 5MG TABLET PO SCH ×3 (05:49→21:45)
[2022-03-27] MEDS: INSULIN LISPRO 100 UNITS/ML SUBCUT SCH ×4 (05:49→23:58)
[2022-03-27] MEDS: PHENYLEPHRINE 100 MG in DEXT 5% WATER 240 ML IV PRN ×3 (06:48→22:42)
[2022-03-27 07:42] LABS: BG CARBOXYHEMOGLOBIN 0.3 % (0.5-1.5); BG DEOXYHEMOGLOBIN 5.6 % (0.0-5.0); BG HCO3 ACT 25.1 mmol/L (22.0-26.0); BG OXYGEN SATURATION 94.4 % (92.0-98.5); BG OXYHEMOGLOBIN 94.1 % (94.0-97.0); BG PCO2 37.9 mmHg (35.0-45.0); BG PH 7.439 (7.350-7.450); BG PO2 70.2 mmHg (75.0-100.0); BG SAMPLE SITE RIGHT RADIAL; BG TOTAL HEMOGLOBIN 10.8 g/dL (12.0-18.0); BG VENT MODE VENT- PRVC
[2022-03-27] MEDS: PANTOPRAZOLE SODIUM 40 MG/VIAL IV SCH (08:03)
[2022-03-27] MEDS: BACITRACIN 15GM TUBE TOP SCH ×2 (08:03→17:00)
[2022-03-27] MEDS: LEVETIRACETAM 500MG PREMIX 100 ML IV SCH ×2 (08:03→21:28)
[2022-03-27] MEDS: CEFEPIME 1,000 MG in DEXTROSE 5% WATER 50 ML IV SCH ×2 (08:03→21:28)
[2022-03-27] MEDS ORDERED: DEXAMETHASONE 4MG/ML 1ML VIAL IV SCH (09:00)
[2022-03-27 10:03] LABS: HEMATOCRIT. 34.6 % (36.0-48.0); HEMOGLOBIN. 10.6 g/dL (12.0-16.0); MEAN CORPUSCULAR HEMOGLOBIN 34.1 pg (28.0-32.0); MEAN CORPUSCULAR VOLUME 111.4 fL (81.0-99.0); MEAN PLATELET VOLUME 11.2 fl (7.4-10.4); RED BLOOD CELL COUNT 3.11 mill/uL (4.2-5.4); RED CELL DISTRIBUTION WIDTH 16.8 % (11.6-14.6)
[2022-03-27 10:07] LABS: PLATELET 49 x1000/uL (130-400)
[2022-03-27] MEDS ORDERED: SODIUM CHLORIDE 0.9% 250 ML IV ONE ×2 (10:15→11:15)
[2022-03-27] MEDS: DEXT 5%/0.9% NACL 1,000 ML IV SCH (10:21)
[2022-03-27 11:11] LABS: NUCLEATED RED BLOOD CELLS 1 /100 WBC; PLATELET ESTIMATE MARKEDLY DECREASED
[2022-03-27] MEDS: PROPOFOL 10MG/ML 100ML 100 ML IV PRN (14:26)
[2022-03-27] MEDS: INSULIN GLARGINE 100 UNITS/ML SUBCUT SCH (23:58)
[2022-03-28] VITALS (100 sets, daily range): BP systolic 60–126; BP diastolic 21–86
[2022-03-28] MEDS: IPRATROPIUM BROMIDE (0.02%) 0.5MG/2.5ML NEB HHN SCH ×6 (00:21→21:03)
[2022-03-28] MEDS: DEXT 5%/0.9% NACL 1,000 ML IV SCH (02:16)
[2022-03-28] MEDS: BLOOD SUGAR DIAGNOSTIC STRIP TEST SCH ×4 (05:31→23:14)
[2022-03-28] MEDS: VANCOMYCIN 750MG PMX (XELLIA) 150 ML IV SCH ×2 (05:31→17:17)
[2022-03-28] MEDS: MIDODRINE HCL 5MG TABLET PO SCH ×3 (05:31→21:23)
[2022-03-28] MEDS: INSULIN LISPRO 100 UNITS/ML SUBCUT SCH ×4 (05:33→23:14)
[2022-03-28] MEDS: PANTOPRAZOLE SODIUM 40 MG/VIAL IV SCH (08:07)
[2022-03-28] MEDS: CEFEPIME 1,000 MG in DEXTROSE 5% WATER 50 ML IV SCH ×2 (08:07→21:23)
[2022-03-28] MEDS: DEXAMETHASONE 4MG/ML 1ML VIAL IV SCH (08:07)
[2022-03-28] MEDS: LEVETIRACETAM 500MG PREMIX 100 ML IV SCH ×2 (08:08→20:30)
[2022-03-28] MEDS: PHENYLEPHRINE 100 MG in DEXT 5% WATER 240 ML IV PRN ×3 (08:25→22:56)
[2022-03-28] MEDS: BACITRACIN 15GM TUBE TOP SCH ×2 (09:28→17:17)
[2022-03-28] MEDS: PROPOFOL 10MG/ML 100ML 100 ML IV PRN (10:58)
[2022-03-28] MEDS: METOCLOPRAMIDE HCL 10MG/2ML VIAL IV SCH ×3 (11:48→23:18)
[2022-03-28] MEDS ORDERED: FUROSEMIDE 20MG/2ML VIAL IVP NR (12:15)
[2022-03-28 15:47] LABS: CHLORIDE 103 mEq/L (98-107)
[2022-03-28] MEDS: INSULIN GLARGINE 100 UNITS/ML SUBCUT SCH (21:23)
[2022-03-28] MEDS ORDERED: NOREPINEPHRINE 32 MG in DEXT 5% WATER 218 ML IV PRN (22:45)
[2022-03-28] MEDS: NOREPINEPHRINE 32 MG in DEXT 5% WATER 218 ML IV PRN (22:54)
[2022-03-29] VITALS (71 sets, daily range): BP systolic 39–129; BP diastolic 22–113
[2022-03-29] MEDS: IPRATROPIUM BROMIDE (0.02%) 0.5MG/2.5ML NEB HHN SCH ×6 (00:07→20:58)
[2022-03-29] MEDS: ACETAMINOPHEN 325MG TABLET PO PRN (01:00)
[2022-03-29] MEDS: VASOPRESSIN 20 UNIT in SODIUM CHLORIDE 0.9% 99 ML IV PRN ×3 (03:52→23:38)
[2022-03-29] MEDS ORDERED: SODIUM CHLORIDE 0.9% 500 ML IV ONE ×2 (04:15→10:00)
[2022-03-29] MEDS ORDERED: ALBUMIN HUMAN 25GM/100ML (25%) IV NR ×2 (04:15→12:00)
[2022-03-29] MEDS: PROPOFOL 10MG/ML 100ML 100 ML IV PRN (05:08)
[2022-03-29] MEDS: DEXTROSE 50% WATER 50ML SYRINGE IV PRN ×4 (05:20→21:58)
[2022-03-29] MEDS: INSULIN LISPRO 100 UNITS/ML SUBCUT SCH ×4 (05:23→23:37)
[2022-03-29] MEDS: BLOOD SUGAR DIAGNOSTIC STRIP TEST SCH ×4 (05:23→23:37)
[2022-03-29] MEDS: METOCLOPRAMIDE HCL 10MG/2ML VIAL IV SCH ×4 (05:33→23:38)
[2022-03-29] MEDS: MIDODRINE HCL 5MG TABLET PO SCH ×3 (05:33→21:22)
[2022-03-29] MEDS: VANCOMYCIN 750MG PMX (XELLIA) 150 ML IV SCH ×2 (05:33→17:14)
[2022-03-29] MEDS ORDERED: ADENOSINE 3 MG/ML 2ML VIAL IV NR ×3 (06:15→06:30)
[2022-03-29] MEDS: PHENYLEPHRINE 100 MG in DEXT 5% WATER 240 ML IV PRN ×3 (06:35→21:49)
[2022-03-29 06:49] LABS: HEMATOCRIT. 30.2 % (36.0-48.0); HEMOGLOBIN. 10.4 g/dL (12.0-16.0); MEAN CORPUSCULAR HEMOGLOBIN 34.3 pg (28.0-32.0); MEAN CORPUSCULAR VOLUME 99.8 fL (81.0-99.0); MEAN PLATELET VOLUME 11.3 fl (7.4-10.4); RED BLOOD CELL COUNT 3.03 mill/uL (4.2-5.4); RED CELL DISTRIBUTION WIDTH 14.6 % (11.6-14.6)
[2022-03-29 07:26] LABS: PLATELET 44 x1000/uL (130-400)
[2022-03-29 07:33] LABS: CHLORIDE 108 mEq/L (98-107)
[2022-03-29] MEDS ORDERED: POTASSIUM CHLORIDE INJ 40 MEQ in DEXT 5% WATER 250 ML IV ONE (08:00)
[2022-03-29] MEDS: PANTOPRAZOLE SODIUM 40 MG/VIAL IV SCH (08:17)
[2022-03-29] MEDS: CEFEPIME 1,000 MG in DEXTROSE 5% WATER 50 ML IV SCH ×2 (08:17→21:23)
[2022-03-29] MEDS: BACITRACIN 15GM TUBE TOP SCH ×2 (08:17→17:14)
[2022-03-29] MEDS: LEVETIRACETAM 500MG PREMIX 100 ML IV SCH ×2 (08:17→21:22)
[2022-03-29] MEDS: DEXAMETHASONE 4MG/ML 1ML VIAL IV SCH (08:17)
[2022-03-29] MEDS: KCL 20MEQ/100ML X 2 FOR TOTAL KCL 40MEQ/200ML IV SCH ×2 (09:10→11:06)
[2022-03-29] MEDS ORDERED: DILTIAZEM HCL 5MG/ML 5ML VIAL IV SCH (09:45)
[2022-03-29] MEDS ORDERED: AMIODARONE HCL 150 MG in DEXT 5% WATER 100 ML IV SCH (11:15)
[2022-03-29] MEDS ORDERED: AMIODARONE HCL 900 MG in DEXT 5% WATER 500 ML IV SCH (11:30)
[2022-03-29] MEDS ORDERED: DEXT 10% WATER 1,000 ML IV SCH (11:45)
[2022-03-29] MEDS: NOREPINEPHRINE 32 MG in DEXT 5% WATER 218 ML IV PRN ×2 (12:44→21:49)
[2022-03-29] MEDS: EPINEPHRINE 10 MG in SODIUM CHLORIDE 0.9% 240 ML IV PRN ×5 (13:21→22:15)
[2022-03-29 14:41] LABS: NUCLEATED RED BLOOD CELLS 8 /100 WBC
[2022-03-29 14:42] LABS: PLATELET ESTIMATE MARKEDLY DECREASED
[2022-03-30] VITALS (56 sets, daily range): BP systolic 22–135; BP diastolic 16–80
[2022-03-30] MEDS: EPINEPHRINE 10 MG in SODIUM CHLORIDE 0.9% 240 ML IV PRN ×14 (00:23→23:34)
[2022-03-30] MEDS: IPRATROPIUM BROMIDE (0.02%) 0.5MG/2.5ML NEB HHN SCH ×5 (04:20→21:17)
[2022-03-30] MEDS: INSULIN LISPRO 100 UNITS/ML SUBCUT SCH ×3 (05:12→18:00)
[2022-03-30] MEDS: BLOOD SUGAR DIAGNOSTIC STRIP TEST SCH ×3 (05:12→18:00)
[2022-03-30] MEDS: VANCOMYCIN 750MG PMX (XELLIA) 150 ML IV SCH ×2 (05:16→17:29)
[2022-03-30] MEDS: MIDODRINE HCL 5MG TABLET PO SCH ×3 (05:18→22:58)
[2022-03-30] MEDS: METOCLOPRAMIDE HCL 10MG/2ML VIAL IV SCH ×2 (05:18→12:09)
[2022-03-30 05:21] LABS: HEMATOCRIT. 30.2 % (36.0-48.0); HEMOGLOBIN. 9.6 g/dL (12.0-16.0); MEAN CORPUSCULAR HEMOGLOBIN 33.5 pg (28.0-32.0); RED BLOOD CELL COUNT 2.85 mill/uL (4.2-5.4); RED CELL DISTRIBUTION WIDTH 15.8 % (11.6-14.6)
[2022-03-30 05:26] LABS: CHLORIDE 101 mEq/L (98-107)
[2022-03-30] MEDS: PHENYLEPHRINE 100 MG in DEXT 5% WATER 240 ML IV PRN ×4 (06:32→23:33)
[2022-03-30] MEDS: NOREPINEPHRINE 32 MG in DEXT 5% WATER 218 ML IV PRN ×4 (06:33→23:33)
[2022-03-30 06:35] LABS: PLATELET 16 x1000/uL (130-400)
[2022-03-30 06:43] LABS: NUCLEATED RED BLOOD CELLS 6 /100 WBC; PLATELET ESTIMATE MARKEDLY DECREASED
[2022-03-30] MEDS: CEFEPIME 1,000 MG in DEXTROSE 5% WATER 50 ML IV SCH ×2 (09:45→22:55)
[2022-03-30] MEDS: BACITRACIN 15GM TUBE TOP SCH ×2 (09:46→17:30)
[2022-03-30] MEDS: DEXAMETHASONE 4MG/ML 1ML VIAL IV SCH (09:46)
[2022-03-30] MEDS: PANTOPRAZOLE SODIUM 40 MG/VIAL IV SCH (09:46)
[2022-03-30] MEDS: LEVETIRACETAM 500MG PREMIX 100 ML IV SCH ×2 (10:02→22:56)
[2022-03-30] MEDS ORDERED: SODIUM BICARBONATE 8.4% 1 MEQ/ML 50ML SYR IV SCH (10:30)
[2022-03-30] MEDS: SODIUM BICARBONATE 100 MEQ in DEXTROSE 5% WATER 1,000 ML IV SCH (11:38)
[2022-03-30] MEDS: VASOPRESSIN 20 UNIT in SODIUM CHLORIDE 0.9% 99 ML IV PRN ×2 (12:09→22:00)
[2022-03-30 12:33] LABS: BG BASE EXCESS -16.4 mmol/L (-2.0-2.0); BG CARBOXYHEMOGLOBIN 0.2 % (0.5-1.5); BG DEOXYHEMOGLOBIN 3.8 % (0.0-5.0); BG FRACTION INSPIRED OXYGEN 100; BG HCO3 ACT 12.1 mmol/L (22.0-26.0); BG METHEMOGLOBIN 0.1 % (0.0-1.5); BG OXYGEN SATURATION 96.2 % (92.0-98.5); BG OXYHEMOGLOBIN 95.9 % (94.0-97.0); BG PH 7.111 (7.350-7.450); BG PO2 91.4 mmHg (75.0-100.0); BG SAMPLE SITE LEFT RADIAL; BG TOTAL HEMOGLOBIN 11.1 g/dL (12.0-18.0); BG VENT MODE VENT - PRVC
[2022-03-30 16:24] LABS: HAPTOGLOBIN 226 mg/dL (30-200)
[2022-03-30] MEDS ORDERED: FUROSEMIDE 40MG/4ML VIAL IVP NR (17:15)
[2022-03-31] VITALS: BP 50/19
[2022-03-31 00:17] VITALS: BP 58/20
[2022-03-31 00:30] VITALS: BP 42/21
[2022-03-31] MEDS: IPRATROPIUM BROMIDE (0.02%) 0.5MG/2.5ML NEB HHN SCH ×2 (00:43→04:30)
[2022-03-31 01:11] VITALS: BP 58/40
[2022-03-31 01:16] VITALS: BP 46/22
[2022-03-31] MEDS: EPINEPHRINE 10 MG in SODIUM CHLORIDE 0.9% 240 ML IV PRN ×5 (01:44→07:58)
[2022-03-31] MEDS: NOREPINEPHRINE 32 MG in DEXT 5% WATER 218 ML IV PRN (04:17)
[2022-03-31] MEDS: PHENYLEPHRINE 100 MG in DEXT 5% WATER 240 ML IV PRN (04:18)
[2022-03-31] MEDS: VANCOMYCIN 750MG PMX (XELLIA) 150 ML IV SCH (05:38)
[2022-03-31] MEDS: INSULIN LISPRO 100 UNITS/ML SUBCUT SCH ×2 (06:00)
[2022-03-31] MEDS: BLOOD SUGAR DIAGNOSTIC STRIP TEST SCH ×2 (06:15)
[2022-03-31] MEDS: MIDODRINE HCL 5MG TABLET PO SCH (06:17)
[2022-03-31 06:30] VITALS: BP 29/13
[2022-03-31] MEDS: SODIUM BICARBONATE 100 MEQ in DEXTROSE 5% WATER 1,000 ML IV SCH (07:57)
== END 2022-03-31 11:00 | DRG 4 ==
LOC: ER 09:15 → EDBD 09:15 → CVICU 11:08 → EDBEDREQ 11:15 → EDBEDREQTM 11:15 → ENRESERV 12:20 → 5EST 03-22 17:54 → MICUNO 03-25 22:29
PROVIDERS: ADMIT Internal Medicine; ATTEND Internal Medicine
PROC: 5A1955Z Respiratory Ventilation, Greater than 96 Consecutive Hours (ICD-10-PCS; principal; 2022-03-04)
PROC: 02HV33Z Insertion of Infusion Device into Superior Vena Cava, Percutaneous Approach (ICD-10-PCS; 2022-03-04)
PROC: B548ZZA Ultrasonography of Superior Vena Cava, Guidance (ICD-10-PCS; 2022-03-04)
PROC: 0BH17EZ Insertion of Endotracheal Airway into Trachea, Via Natural or Artificial Opening (ICD-10-PCS; 2022-03-04)
PROC: 0B110F4 Bypass Trachea to Cutaneous with Tracheostomy Device, Open Approach (ICD-10-PCS; 2022-03-15)
PROC: 0GBJ0ZZ Excision of Thyroid Gland Isthmus, Open Approach (ICD-10-PCS; 2022-03-15)
PROC: 0DH63UZ Insertion of Feeding Device into Stomach, Percutaneous Approach (ICD-10-PCS; 2022-03-23)
PROC: 0BH17EZ Insertion of Endotracheal Airway into Trachea, Via Natural or Artificial Opening (ICD-10-PCS; 2022-03-25)
PROC: 0JB50ZZ Excision of Left Neck Subcutaneous Tissue and Fascia, Open Approach (ICD-10-PCS; 2022-03-25)
PROC: 0JB40ZZ Excision of Right Neck Subcutaneous Tissue and Fascia, Open Approach (ICD-10-PCS; 2022-03-25)
PROC: 0BP1XFZ Removal of Tracheostomy Device from Trachea, External Approach (ICD-10-PCS; 2022-03-25)
PROC: 30233R1 Transfusion of Nonautologous Platelets into Peripheral Vein, Percutaneous Approach (ICD-10-PCS; 2022-03-30)
DX: A41.9 Sepsis, unspecified organism (principal); G93.6 Cerebral edema; I46.9 Cardiac arrest, cause unspecified; D65 Disseminated intravascular coagulation [defibrination syndrome]; E11.641 Type 2 diabetes mellitus with hypoglycemia with coma; G93.41 Metabolic encephalopathy; R65.21 Severe sepsis with septic shock; K56.7 Ileus, unspecified; Z66 Do not resuscitate; E43 Unspecified severe protein-calorie malnutrition; J18.8 Other pneumonia, unspecified organism; J96.01 Acute respiratory failure with hypoxia; R17 Unspecified jaundice; R13.12 Dysphagia, oropharyngeal phase; G93.1 Anoxic brain damage, not elsewhere classified; C79.31 Secondary malignant neoplasm of brain; C34.92 Malignant neoplasm of unspecified part of left bronchus or lung; C34.91 Malignant neoplasm of unspecified part of right bronchus or lung; D64.9 Anemia, unspecified; Z20.822 Contact with and (suspected) exposure to COVID-19; N18.2 Chronic kidney disease, stage 2 (mild); E87.1 Hypo-osmolality and hyponatremia; E11.22 Type 2 diabetes mellitus with diabetic chronic kidney disease; T38.0X5A Adverse effect of glucocorticoids and synthetic analogues, initial encounter; J95.02 Infection of tracheostomy stoma; Y83.8 Other surgical procedures as the cause of abnormal reaction of the patient, or of later complication, without mention of misadventure at the time of the procedure; Y92.238 Other place in hospital as the place of occurrence of the external cause; D72.829 Elevated white blood cell count, unspecified; E87.6 Hypokalemia; D72.819 Decreased white blood cell count, unspecified; I47.1 Supraventricular tachycardia; I82.512 Chronic embolism and thrombosis of left femoral vein; Z92.21 Personal history of antineoplastic chemotherapy; Z92.3 Personal history of irradiation; Z51.5 Encounter for palliative care; Z68.38 Body mass index [BMI] 38.0-38.9, adult
CPT/HCPCS: 31500; 36415; 36573; 36600; 70544; 70553; 71045; 71275; 74018; 74174; 80048; 80053; 80202; 81003; 82010; 82040; 82270; 82375; 82436; 82550; 82607; 82728; 82746; 82805; 82962; 83010; 83036; 83540; 83550; 83605; 83615; 83735; 83880; 83930; 83935; 84100; 84145; 84300; 84439; 84443; 84478; 84484; 85025; 85027; 85044; 86850; 86900; 87070; 87077; 87106; 87186; 87426; 93005; 93306; 93923; 93970; 94002; 94003; 94640; 99291; A6261; A9577; C1725; C9113; C9803; J0153; J0282; J0456; J0690; J0692; J1100; J1200; J1650; J1815; J1940; J1953; J1956; J2060; J2250; J2270; J2370; J2704; J2765; J3010; J3370; J3475; J3480; J3490; J7042; J7050; J7060; J7070; P9034; P9047; Q9967; A4315; P9036